=== PATIENT | male | born 1950 | race Hispanic/Latino ===

== ENCOUNTER 2018-07-03 10:59 | Emergency (ER) | payer OTHER ==
[2018-07-03] MEDS ORDERED: NA CHLORIDE 0.9% 1,000 ML ONE (11:15)
--- NOTE | 2018-07-03 11:36 | RAD REPORT ---
EXAM DESCRIPTION: CT - Ct Stroke Brain Wo Cont - 07/03/2018 11:21 am CLINICAL HISTORY: Confusion/repetitive speech COMPARISON: None. TECHNIQUE: Computed axial tomography of the head was obtained. IV contrast was not requested. All CT scans are performed using dose optimization technique as appropriate and may include automated exposure control or mA/KV adjustment according to patient size. FINDINGS: An intracranial bleed is not seen . The ventricles are normal in caliber. No extra-axial fluid collection is noted. Fluid within the sinuses/ mastoids is not seen. IMPRESSION: No acute intracranial abnormality is seen. If patient's symptoms persist MRI of the bra in would be recommended. David from the emergency room was notified 11:30 a.m. July 03, 2018
[2018-07-03 11:39] LABS: Absolute Lymphocytes (CBC) 0.9 K/uL (0.7-4.9); Absolute Monocytes 0.3 K/uL (0.1-1.3); Basophils % 0.6 % (0-1.3); Eosinophils % 0.5 % (0-4.4); Hematocrit 44.1 % (39.6-49.0); Lymphocytes % 11.8 % (15.3-44.8); MCH 29.2 pg (27.0-35.0); MCV 84.2 fL (80-100); MPV 9.8 fL (7.6-11.3); Monocytes % 4.5 % (3.3-12.3); RBC Red Blood Cell Count 5.24 M/uL (4.33-5.43)
[2018-07-03 11:44] LABS: Protime INR 0.94
[2018-07-03 11:57] LABS: Bilirubin Direct 0.3 mg/dL (0-0.2); Bilirubin Total 1.3 mg/dL (0.2-1.0); Magnesium 2.1 mg/dL (1.8-2.4); Potassium 3.8 mmol/L (3.5-5.1); Protein, Total 7.4 g/dL (6.4-8.2)
--- NOTE | 2018-07-03 12:58 | RAD REPORT ---
EXAM DESCRIPTION: [place] Single View07/03/2018 12:15 pm CLINICAL HISTORY: Chest pain COMPARISON: none FINDINGS: The lungs appear clear of acute infiltrate. The heart is upper limits normal size IMPRESSION: No acute abnormalities displayed
[2018-07-03 13:46] LABS: Barbiturates NEGATIVE (NEGATIVE); Benzodiazepines NEGATIVE (NEGATIVE); Cocaine NEGATIVE (NEGATIVE); METHAMPHETAM NEGATIVE (NEGATIVE); Methadone NEGATIVE (NEGATIVE); Opiates NEGATIVE (NEGATIVE); Phencyclidine NEGATIVE (NEGATIVE); THC Cannibis NEGATIVE (NEGATIVE)
[2018-07-03 13:51] LABS: Urine Blood NEGATIVE (NEG); Urine Glucose 2+ (NEG); Urine Protein NEGATIVE (NEG); Urine Specific Gravity 1.025 (1.005-1.030); Urine pH 5.5 (5.0-7.0)
[2018-07-03 14:12] LABS: Urine Bacteria <20 /HPF (NONE SEEN); Urine Culture Reflex Order NOT NEEDED; Urine RBC <5 /HPF (NONE SEEN)
--- NOTE | 2018-07-03 15:53 | ER ---
Nurse's Notes [facility] Name: Cedrick Amos Age: 68 yrs Sex: Male : 1950 Arrival Date: 07/03/2018 Time: 11:03 Bed 3 Private MD: Out, [facility] Diagnosis: Acute confusion;acute anterograde and retrograde amnesia;hyperglycemia Presentation: 07/03 11:07 Presenting complaint: Child states: Son reports that when his went to check on ss patient that patient did not recognize them and seemed confused. This occurred one hour ago, but unknown last known well. Son states that he spoke with patient over the phone last night before he went to bed and he seemed fine. pt reportedly has been doing strenuous work outside all morning and is diabetic. Transition of care: patient was not received from another setting of care. Pre-hospital glucose is not applicable to this patient. No acute neurological deficit is noted. Onset of symptoms is unknown. Risk Assessment: Do you want to hurt yourself or someone else? Patient reports no desire to harm self or others. Initial Sepsis Screen: Does the patient meet any 2 criteria? No. Patient's initial sepsis screen is negative. Does the patient have a suspected source of infection? No. Patient's initial sepsis screen is negative. Note Son reports that patient seems to have improved much since picking him up from home, other than patient is repeating same questions. Care prior to arrival: None. 11:07 Method Of Arrival: Wheelchair ss 11:07 Acuity: QUETA 2 ss Triage Assessment: 16:27 The onset of the patients symptoms was at an unknown time. la1 Stroke Activation: Symptom onset > 6 hours Physician: Stroke Attending; Name: ; Notified At: ; Arrived At: Physician: Chief Stroke Resident; Name: ; Notified At: ; Arrived At: Physician: Stroke Resident; Name: ; Notified At: ; Arrived At: Physician: ED Attending; Name: ; Notified At: ; Arrived At: Physician: ED Resident; Name: ; Notified At: ; Arrived At: 11:07 unkonwn last known well Historical: - Allergies: 11:11 PENICILLINS; ss - Home Meds: 15:42 acarbose 25 mg Oral tab 1 tab 3 times per day [Active]; aspirin 81 mg Oral TbEC 1 tab ph once daily [Active]; Caltrate 600+D Plus Minerals 600 mg calcium- 800 unit-50 mg Oral tab [Active]; Centrum Silver 0.4-300-250 mg-mcg-mcg Oral tab [Active]; cyanocobalamin (vitamin B-12) 1,000 mcg Oral tab [Active]; ergocalciferol (vitamin D2) 50,000 unit Oral cap 1 cap once daily [Active]; glipizide 10 mg Oral tab 1 tab once daily [Active]; losartan 50 mg Oral tab 1 tab once daily for Hypertension [Active]; meloxicam 15 mg Oral tab 1 tab once daily [Active]; metformin 500 mg Oral Tb24 1 tab once daily for Type 2 Diabetes Mellitus [Active]; ranitidine HCl 150 mg Oral cap 1 cap once daily [Active]; simvastatin 40 mg Oral tab 1 tab once daily for Hyperlipidemia [Active]; tamsulosin 0.4 mg Oral cp24 1 cap once daily [Active]; - PMHx: 11:11 Diabetes - NIDDM; Hyperlipidemia; Hypertension; ss - PSHx: 11:11 left knee; Hernia repair; ss - Immunization history:: Adult Immunizations up to date. - Social history:: Smoking status: Patient/guardian denies using tobacco. - Ebola Screening: : Patient denies exposure to infectious person Patient denies travel to an Ebola-affected area in the 21 days before illness onset. - Family history:: not pertinent. - Hospitalizations: : No recent hospitalization is reported. Screenin:32 Abuse screen: Denies threats or abuse. Denies injuries from another. Nutritional ph screening: No deficits noted. Tuberculosis screening: No symptoms or risk factors identified. Fall Risk None identified. Assessment: 11:13 General: Appears in no apparent distress. comfortable, well groomed, Behavior is calm, ph cooperative, appropriate for age, Denies fever, feeling ill, fatigue, Pt asking son same question repeatedly, " Who came over?" Son will reply and then pt asks question again in approx 2 min. Pain: Denies pain. Neuro: Level of Consciousness is awake, alert, obeys commands, Oriented to person, place, time, Experience Planning Strategist are equal bilaterally Moves all extremities. Full function Speech is normal, Facial symmetry appears normal, Facial symmetry: tongue is midline, Pupils are PERRLA, Intact. Cardiovascular: Capillary refill < 3 seconds in bilateral fingers Patient's skin is warm and dry. Rhythm is sinus rhythm. Respiratory: Airway is patent Respiratory effort is even, unlabored, Respiratory pattern is regular, symmetrical. GI: Abdomen is round non-distended, Bowel sounds present X 4 quads. Abd is soft and non tender X 4 quads. Patient currently denies diarrhea, nausea, vomiting. : No signs and/or symptoms were reported regarding the genitourinary system. Derm: Skin is intact, is healthy with good turgor, Skin is pink, warm \\T\\ dry. Musculoskeletal: Circulation, motion, and sensation intact. Range of motion: intact in all extremities. 11:15 Reassessment: Pt taken to CT, accompanied by specimen technician. ph 11:20 T-PA (Activase) Screening: Indications: Treatment will start within 4.5 hours onset of ph symptoms: No. Contraindications: Other: S/S onset unknown, pt last seen normal by family last night at 1800 when he spoke w/ son on telephone. 12:15 Patient has been NPO before screening. The patient is alert, and able to follow ph commands. The patient does not exhibit slurred or garbled speech. The patient is not exhibiting difficulty speaking. The patient does not exhibit difficulty understanding words. The patient is able to swallow own secretions with no drooling or need for suction. Patient tolerated one teaspoon of water. No drooling, immediate coughing, gurgling, or clearing of the throat was noted. The patient tolerated 90mL of water. No drooling, immediate coughing, gurgling, or clearing of the throat was noted. The patient passed the bedside swallow screening. Oral medications may be given as ordered. Contact Physician for further diet orders. Provider notified of bedside swallow screening results: Ag Ashton MD. 12:32 Reassessment: Patient appears in no apparent distress at this time. Patient and/or ph family updated on plan of care and expected duration. Pain level reassessed. Patient is alert, oriented x 3, equal unlabored respirations, skin warm/dry/pink. Pt oriented x 4 at this time however, family reports that he is still repeatedly asking the same questions. 13:26 Reassessment: Patient appears in no apparent distress at this time. No changes from ph previously documented assessment. Patient and/or family updated on plan of care and expected duration. Pain level reassessed. Patient is alert, oriented x 3, equal unlabored respirations, skin warm/dry/pink. Dr Ashton at bedside to speak w/ pt about being transferred for further evaluation. 15:00 Reassessment: Patient appears in no apparent distress at this time. Patient and/or ph family updated on plan of care and expected duration. Pain level reassessed. Patient is alert, oriented x 3, equal unlabored respirations, skin warm/dry/pink. Report called to [facility], awaiting EMS for transport, VSS, family at bedside. Vital Signs: 11:11 BP 161 / 86; Pulse 94; Resp 16; Temp 98.4(O); Pulse Ox 95% on R/A; Weight 95.25 kg; ss Height 5 ft. 7 in. (170.18 cm); Pain 0/10; 11:12 BP 161 / 86; Pulse 94; Resp 22; Temp 98.4; Pulse Ox 98% on R/A; Pain 0/10; ph 12:36 BP 132 / 75; Pulse 86; Resp 18; Pulse Ox 98% on R/A; Pain 0/10; ph 13:45 BP 144 / 80; Pulse 78; Resp 18; Pulse Ox 98% on R/A; ph 14:30 BP 137 / 78; Pulse 76; Resp 16; Pulse Ox 99% on R/A; ph 15:43 BP 125 / 65; Pulse 72; Resp 18; Temp 97.9; Pulse Ox 98% on R/A; ph 11:11 Body Mass Index 32.89 (95.25 kg, 170.18 cm) NIH Stroke Scale Scores: 15:02 NIHSS Score: 1 ph ED Course: 11:03 Patient arrived in ED. sb2 11:03 Out, [facility] is Private Physician. sb2 11:04 Arm band placed on right wrist. ss 11:07 Ag Ashton MD is Attending Physician. wa 11:07 Inserted saline lock: 20 gauge in right forearm, using aseptic technique. Blood la1 collected. 11:11 Triage completed. ss 11:11 Conchita Bañuelos, RN is Primary Nurse. ph 11:15 Patient has correct armband on for positive identification. Placed in gown. Bed in low ph position. Call light in reach. Side rails up X2. manager monitoring on. Pulse ox on. NIBP on. Warm blanket given. 11:22 CT Stroke Brain w/o Contrast In Process Unspecified. EDMS 12:07 X-ray completed. Portable x-ray completed in exam room. Patient tolerated procedure la2 well. 12:15 Stroke CXR 1 View In Process Unspecified. EDMS 14:07 initiated transfer with Audi at the [facility]. eb 14:[address] Winn the neurologist electronic design engineer from [facility] with ED doc for eb patient transfer consulation. 14:27 connected the Hospitalist from [facility] with ED doc for patient transfer eb consulation. 14:32 Administrative Approval given by Nela Da Silva. Dr. Colleen Johnson has accepted the eb patient in transfer. Patient to go to room 919- report to be called to [phone]. 15:40 No provider procedures requiring assistance completed. Patient transferred, IV remains ph in place. Administered Medications: 11:15 Drug: NS 0.9% 1000 ml Route: IV; Rate: 1 bolus; Site: right forearm; la1 12:45 Follow up: Response: No adverse reaction; IV Status: Completed infusion ph Point of Care Testing: Blood Glucose: 11:04 Blood Glucose: 209 mg/dL; ss Ranges: Outcome: 15:52 ER care complete, transfer ordered by MD. taylor 16:27 Transferred by ground EMS to [facility], Transfer form completed. la1 X-rays sent w/ patient. 16:27 Condition: stable 16:27 Instructed on the need for transfer. 16:28 Patient left the ED. la1 NIH Stroke Scale - NIH Stroke Score Date: 07/03/2018 Time: 15:02 Total Score = 1 1a. Level of Consciousness (LOC) - 0(Alert) 1b. Level of Consciousness (LOC) (Year \\T\\ Age) - 0(Both) 1c. LOC Commands (Open \\T\\ Closes Eyes/Director Manufacturing Engineering) - 0(Both) 2. Best Gaze (Lateral Gaze Paresis) - 0(Normal) 3. Visual Field Loss - 0(No visual loss) 4. Facial Palsy - 0(Normal) 5a. Left Arm: Motor (10-second hold) - 0(No drift) 5b. Right Arm: Motor (10-second hold) - 0(No drift) 6a. Left Leg: Motor (5-second hold - always test supine) - 0(No drift) 6b. Right Leg: Motor (5-second hold - always test supine) - 0(No drift) 7. Limb Ataxia (finger/nose \\T\\ heel/molina - test with eyes open) - 0(Absent) 8. Sensory Loss (pinprick arms/legs/face) - 0(Normal) 9. Best Language: Aphasia (description/naming/reading) - 1(Mild to moderate aphasia) 10. Dysarthria (speech clarity - read or repeat words) - 0(Normal) 11. Extinction and Inattention (visual/tactile/auditory/spatial/personal) - 0(No abnormality) Initials: ph Signatures: Dispatcher [employer] EDMS Hillary Worrell RN RN Yung Reynoso RN RN la1 Conchita Bañuelos RN RN Ag Ashton MD MD wa Ardoin, Leslie la2 Billeau, Sheri sb2 Botello, Elizabeth eb Corrections: (The following items were deleted from the chart) 14:30 14:[address] Winn the neurologist electronic design engineer from [facility] with ED eb doc eb 15:03 11:13 NIHSS Score: 0 ph ph
--- NOTE | 2018-07-03 15:53 | EDPHYS ---
Physician Documentation [facility] Name: Cedrick Amos Age: 68 yrs Sex: Male : 1950 Arrival Date: 07/03/2018 Time: 11:03 Bed 3 Private MD: Out, of [facility] ED Physician Ag Ashton HPI: 07/03 15:38 This 68 yrs old Male presents to ER via Wheelchair with complaints of S/S of wa Possible Stroke. 15:38 The patient's problem is reported as confused. per family, pt was home alone working on wa his truck. noted prior to arrival acting confused and not remembering things. brought in by his son. denies fall or injury. Onset: The symptoms/episode began/occurred today, exact timing unknown. last time his son spoke with him was last night. pt's spouse apparently not home. Duration: The episode is continuous, improving. Context: symptoms became apparent at an unknown time, today. , occurred at home, occurred while the patient was light activity. Possible contributing factors include: unknown. denies ETOH or drug use. The symptoms are alleviated by nothing. The symptoms are aggravated by nothing. Associated signs and symptoms: The patient has no apparent associated signs or symptoms. Severity of symptoms: At their worst the symptoms were moderate in the emergency department the symptoms are unchanged. Patient's baseline: Neuro: alert and fully oriented, Motor: no deficits, Ambulation: walks without assistance. The patient has not experienced similar symptoms in the past. The patient has not recently seen a physician. Historical: - Allergies: 11:11 PENICILLINS; ss - Home Meds: 15:42 acarbose 25 mg Oral tab 1 tab 3 times per day [Active]; aspirin 81 mg Oral TbEC 1 tab ph once daily [Active]; Caltrate 600+D Plus Minerals 600 mg calcium- 800 unit-50 mg Oral tab [Active]; Centrum Silver 0.4-300-250 mg-mcg-mcg Oral tab [Active]; cyanocobalamin (vitamin B-12) 1,000 mcg Oral tab [Active]; ergocalciferol (vitamin D2) 50,000 unit Oral cap 1 cap once daily [Active]; glipizide 10 mg Oral tab 1 tab once daily [Active]; losartan 50 mg Oral tab 1 tab once daily for Hypertension [Active]; meloxicam 15 mg Oral tab 1 tab once daily [Active]; metformin 500 mg Oral Tb24 1 tab once daily for Type 2 Diabetes Mellitus [Active]; ranitidine HCl 150 mg Oral cap 1 cap once daily [Active]; simvastatin 40 mg Oral tab 1 tab once daily for Hyperlipidemia [Active]; tamsulosin 0.4 mg Oral cp24 1 cap once daily [Active]; - PMHx: 11:11 Diabetes - NIDDM; Hyperlipidemia; Hypertension; ss - PSHx: 11:11 left knee; Hernia repair; ss - Immunization history:: Adult Immunizations up to date. - Social history:: Smoking status: Patient/guardian denies using tobacco. - Ebola Screening: : Patient denies exposure to infectious person Patient denies travel to an Ebola-affected area in the 21 days before illness onset. - Family history:: not pertinent. - Hospitalizations: : No recent hospitalization is reported. ROS: 15:43 Constitutional: Negative for fever, chills, and weight loss, Eyes: Negative for injury, wa pain, redness, and discharge, ENT: Negative for injury, pain, and discharge, Neck: Negative for injury, pain, and swelling, Cardiovascular: Negative for chest pain, palpitations, and edema, Respiratory: Negative for shortness of breath, cough, wheezing, and pleuritic chest pain, Abdomen/GI: Negative for abdominal pain, nausea, vomiting, diarrhea, and constipation, Back: Negative for injury and pain, : Negative for injury, bleeding, discharge, and swelling, MS/Extremity: Negative for injury and deformity, Skin: Negative for injury, rash, and discoloration. 15:43 Neuro: Positive for altered mental status, confusion, Negative for dizziness, headache, syncope. 15:43 All other systems are negative. Exam: 15:43 Radiologist reports: no acute process wa 15:43 Constitutional: This is a well developed, well nourished patient who is awake, alert, and in no acute distress. Head/Face: Normocephalic, atraumatic. Eyes: Pupils equal round and reactive to light, extra-ocular motions intact. Lids and lashes normal. Conjunctiva and sclera are non-icteric and not injected. Cornea within normal limits. Periorbital areas with no swelling, redness, or edema. ENT: Nares patent. No nasal discharge, no septal abnormalities noted. Tympanic membranes are normal and external auditory canals are clear. Oropharynx with no redness, swelling, or masses, exudates, or evidence of obstruction, uvula midline. Mucous membranes moist. Neck: Trachea midline, no thyromegaly or masses palpated, and no cervical lymphadenopathy. Supple, full range of motion without nuchal rigidity, or vertebral point tenderness. No Meningismus. Chest/axilla: Normal chest wall appearance and motion. Nontender with no deformity. No lesions are appreciated. Cardiovascular: Regular rate and rhythm with a normal S1 and S2. No gallops, murmurs, or rubs. Normal PMI, no JVD. No pulse deficits. Respiratory: Lungs have equal breath sounds bilaterally, clear to auscultation and percussion. No rales, rhonchi or wheezes noted. No increased work of breathing, no retractions or nasal flaring. Abdomen/GI: Soft, non-tender, with normal bowel sounds. No distension or tympany. No guarding or rebound. No evidence of tenderness throughout. Back: No spinal tenderness. No costovertebral tenderness. Full range of motion. Skin: Warm, dry with normal turgor. Normal color with no rashes, no lesions, and no evidence of cellulitis. MS/ Extremity: Pulses equal, no cyanosis. Neurovascular intact. Full, normal range of motion. Psych: Awake, alert, with orientation to person, place and time. Behavior, mood, and affect are within normal limits. 15:43 Neuro: Orientation: noted perseverating. otherwise alert. no lateralizing signs. no focal symptoms. equal strength no weakness. answers most questions appropriately. however deficits noted on mini-mental exam. Vital Signs: 11:11 BP 161 / 86; Pulse 94; Resp 16; Temp 98.4(O); Pulse Ox 95% on R/A; Weight 95.25 kg; ss Height 5 ft. 7 in. (170.18 cm); Pain 0/10; 11:12 BP 161 / 86; Pulse 94; Resp 22; Temp 98.4; Pulse Ox 98% on R/A; Pain 0/10; ph 12:36 BP 132 / 75; Pulse 86; Resp 18; Pulse Ox 98% on R/A; Pain 0/10; ph 13:45 BP 144 / 80; Pulse 78; Resp 18; Pulse Ox 98% on R/A; ph 14:30 BP 137 / 78; Pulse 76; Resp 16; Pulse Ox 99% on R/A; ph 15:43 BP 125 / 65; Pulse 72; Resp 18; Temp 97.9; Pulse Ox 98% on R/A; ph 11:11 Body Mass Index 32.89 (95.25 kg, 170.18 cm) ss NIH Stroke Scale Scores: 15:02 NIHSS Score: 1 ph MDM: 11:07 Patient medically screened. or 15:47 Differential diagnosis: CVA, TIA, Dementia, metabolic disorder, heat related illness?. or Data reviewed: vital signs, nurses notes. Test interpretation: by ED physician or midlevel provider: EKG: HR 96. sinus. nml EKG. Response to treatment: the patient's symptoms have markedly improved after treatment. ED course: still perseverating, although alert. accepted by Dr. Winn (neurology) at [facility]. 07/03 11:06 Order name: Glucose, Ancillary Testing EDIN 07/03 11:09 Order name: CPK; Complete Time: 13:08 or 07/03 11:09 Order name: Hepatic Function or 07/03 11:09 Order name: Magnesium; Complete Time: 13:08 or 07/03 11:09 Order name: UDS or 07/03 11:09 Order name: Troponin (emerg Dept Use Only); Complete Time: 13:08 or 07/03 11:09 Order name: Basic Metabolic Panel or 07/03 11:09 Order name: CBC with Diff or 07/03 11:09 Order name: Protime (+inr); Complete Time: 13:08 or 07/03 11:09 Order name: Urine Microscopic Only or 07/03 11:09 Order name: CT Stroke Brain w/o Contrast; Complete Time: 13:08 or 07/03 11:09 Order name: Stroke CXR 1 View; Complete Time: 13:08 or 07/03 13:23 Order name: Urine Dipstick--Ancillary (enter results) 07/03 11:09 Order name: EKG; Complete Time: 11:09 or 07/03 11:09 Order name: Accucheck; Complete Time: 11:15 or 07/03 11:09 Order name: Cardiac monitoring; Complete Time: 11:16 or 07/03 11:09 Order name: EKG - Nurse/Tech; Complete Time: 11:15 or 07/03 11:09 Order name: IV Saline Lock; Complete Time: 11:16 or 07/03 11:09 Order name: Labs collected and sent; Complete Time: 11: or 07/03 11:09 Order name: NPO; Complete Time: 11: or 07/03 11:09 Order name: O2 Per Protocol; Complete Time: 11:16 or 07/03 11:09 Order name: O2 Sat Monitoring; Complete Time: 11: or 07/03 11:09 Order name: Urine Dipstick-Ancillary (obtain specimen); Complete Time: 13:11 or Administered Medications: 11:15 Drug: NS 0.9% 1000 ml Route: IV; Rate: 1 bolus; Site: right forearm; la1 12:45 Follow up: Response: No adverse reaction; IV Status: Completed infusion ph Point of Care Testing: Blood Glucose: 11:04 Blood Glucose: 209 mg/dL; ss Ranges: Critical Glucose Levels:Adult <50 mg/dl or >400 mg/dl <40 mg/dl or >180 mg/dl Disposition: 07/03/18 15:[address] [facility]. Diagnosis are Acute confusion, acute anterograde and retrograde amnesia, hyperglycemia. - Reason for transfer: Higher level of care. - Accepting physician is Dr. Winn. - Condition is Stable. - Problem is new. - Symptoms have improved. NIH Stroke Scale - NIH Stroke Score Date: 07/03/2018 Time: 15:02 Total Score = 1 1a. Level of Consciousness (LOC) - 0(Alert) 1b. Level of Consciousness (LOC) (Year \T\ Age) - 0(Both) 1c. LOC Commands (Open \T\ Closes Eyes/Evaluation Analyst) - 0(Both) 2. Best Gaze (Lateral Gaze Paresis) - 0(Normal) 3. Visual Field Loss - 0(No visual loss) 4. Facial Palsy - 0(Normal) 5a. Left Arm: Motor (10-second hold) - 0(No drift) 5b. Right Arm: Motor (10-second hold) - 0(No drift) 6a. Left Leg: Motor (5-second hold - always test supine) - 0(No drift) 6b. Right Leg: Motor (5-second hold - always test supine) - 0(No drift) 7. Limb Ataxia (finger/nose \T\ heel/molina - test with eyes open) - 0(Absent) 8. Sensory Loss (pinprick arms/legs/face) - 0(Normal) 9. Best Language: Aphasia (description/naming/reading) - 1(Mild to moderate aphasia) 10. Dysarthria (speech clarity - read or repeat words) - 0(Normal) 11. Extinction and Inattention (visual/tactile/auditory/spatial/personal) - 0(No abnormality) Initials: ph Signatures: Dispatcher [employer] EDMS Hillary Worrell RN RN Yung Reynoso RN RN la1 Conchita Bañuelos RN RN [facility] MD wa Corrections: (The following items were deleted from the chart) 16:28 15:52 07/03/2018 15:[address] [facility]. la1 Diagnosis is Acute confusion; acute anterograde and retrograde amnesia; hyperglycemia. Reason for transfer: Higher level of care. Accepting physician is Dr. Winn. Condition is Stable. Problem is new. Symptoms have improved. wa
--- NOTE | 2018-07-04 06:31 | EKG ---
Test Date: 2018-07-03 Test Time: 11:09:52 Contractor Buyer: YASMINE MEASUREMENT RESULTS: Intervals: Rate: 96 PA: 168 QRSD: 80 QT: 356 QTc: 449 Mobile: P: 23 PA: 168 QRS: 7 T: 17 INTERPRETIVE STATEMENTS: Normal sinus rhythm Normal ECG Compared to ECG 02/20/2017 13:49:43 No significant changes Electronically Signed On 07-04-18 06:30:30 CDT by Abe Patel
== END 2018-07-03 16:28 | disposition short-term general hospital (02) ==
LOC: ER 10:59
DX: R41.0 Disorientation, unspecified (principal); R41.1 Anterograde amnesia; R41.2 Retrograde amnesia; E11.65 Type 2 diabetes mellitus with hyperglycemia; I10 Essential (primary) hypertension; R29.701 NIHSS score 1; Z88.0 Allergy status to penicillin; Z79.84 Long term (current) use of oral hypoglycemic drugs
CPT/HCPCS: 36415; 70450; 71045; 80048; 80076; 80307 ×8; 82550; 82962; 83735; 84484; 85025; 85610; 93005; 96360; 99285; J7030; 81003; 81015